=== PATIENT | female | born 1990 | race Caucasian/White ===

== ENCOUNTER 2019-02-05 10:28 | Outpatient (REF) | payer BC, SELFPAY ==
--- NOTE | 2019-02-05 10:30 | PAPFT_PTH ---
PATIENT: Yue Lopez LOC: [facility] U#:[id number] AGE/SX: 28/F ROOM: RE02/05/[address]: Manuela Vo MD : 1990 BED: DIS: 02/05/2019 SPEC #: [id number] RECD: 02/05/19 12:55 STATUS: FERMIN REEdwin #: [id number] BI: 02/05/19 10:[address]: Manuela Vo DEPT: [facility] Cytology RECD BY: Promise Oliver Tissues: 1 - CX/ENDOCX FOR PAP SMEARS Procedures: PAP THIN PREP/UVM Screening Comments: [id number]
== END 2019-02-05 10:48 ==
LOC: LBN 10:28
PROVIDERS: PCP Family Medicine; Visit Provider Family Medicine
DX: Z12.4 Encounter for screening for malignant neoplasm of cervix (principal)
CPT/HCPCS: 88142

== ENCOUNTER 2019-04-11 16:01 | Outpatient (CLI) | payer BC, SELFPAY ==
[2019-04-11 16:51] LABS: Abs Immature Grans 0.03 k/cumm (0.0-0.09); Absolute Basophil Count 0.02 k/cumm (0.0-0.2); Absolute Eosinophil Count 0.04 k/cumm (0.0-0.7); Absolute Lymphocyte Count 1.64 k/cumm (1.2-3.4); Absolute Monocyte Count 0.79 k/cumm (0.11-0.7); Basophils % 0.2; Eosinophils % 0.5; HCT 39.7 % (36.0-46.0); HGB 13.4 g/dL (12.0-15.5); Immature Grans % 0.4; Lymphocytes % 20.4; Mean Corp. HGB Concentration 33.8 g/dL (32.0-36.0); Mean Corpuscular Hemoglobin 31.5 pg (27.0-33.0); Mean Corpuscular Volume 93.4 fL (80-95); Mean Platelet Volume 9.1 fL (8.0-11.0); Monocytes % 9.9; Neutrophils % 68.6; Platelet Count 284 x1000/uL (130-400); RBC 4.25 m/cumm (4.00-5.20); RBC Distribution Width 13.6 % (11.7-14.6); White Blood Cell Count 8.02 k/cumm (4.4-10.8)
[2019-04-11 17:59] LABS: TSH (W/Ref FT4) 1.53 uIU/mL (0.36-3.74)
[2019-04-14 10:33] LABS: Hepatitis B Surface Ag Negative (NEGAT)
[2019-04-14 10:37] LABS: HIV-1/2 Ag & Ab Screen Negative (NEGAT); Hepatitis C Ab w Rflx HCV PCR Negative (NEGAT)
[2019-04-14 11:21] LABS: Rubella IgG Ab (UVM) Positive
[2019-04-14 11:25] LABS: Varicella IgG Antibody Positive
[2019-04-14 11:28] LABS: Syphilis Serology (RPR) Negative (Negative)
== END 2019-04-11 16:21 ==
PROVIDERS: PCP Family Medicine; Visit Provider Advanced Practice Midwife
DX: Z34.91 Encounter for supervision of normal pregnancy, unspecified, first trimester (principal); Z11.59 Encounter for screening for other viral diseases; Z11.4 Encounter for screening for human immunodeficiency virus [HIV]; Z01.84 Encounter for antibody response examination
CPT/HCPCS: 36415; 80055; 86787; 86803; 86850; 86900; 86901; 87340; 87389; 84443; 86592; 86762

== ENCOUNTER 2019-04-11 18:21 | Outpatient (REF) | payer BC, SELFPAY ==
[2019-04-11 17:50] LABS: *BARBITURATES SCREEN URINE Negative (Negative); *BENZODIAZEPINES SCREEN URINE Negative (Negative); Cannabinoids THC Negative (Negative); Cocaine Screen,Urine Negative (Negative); METHADONE URINE SCREEN Negative (Negative); OPIATES URINE SCREEN Negative (Negative); Tricyclic Antidepressants Negative (Negative)
[2019-04-11 19:12] LABS: *AMPHETAMINES SCREEN URINE Negative (Negative)
[2019-04-14 14:07] LABS: Chlamydia Result Negative (Negative); GC Result Negative (Negative)
[2019-04-20 04:07] LABS: Buprenorphine Negative; Norbuprenorphine Negative
== END 2019-04-11 18:41 ==
LOC: LBN 18:21
PROVIDERS: PCP Family Medicine; Visit Provider Advanced Practice Midwife
DX: Z34.91 Encounter for supervision of normal pregnancy, unspecified, first trimester (principal); Z11.3 Encounter for screening for infections with a predominantly sexual mode of transmission
CPT/HCPCS: 80307; 87491; 87591; 87086

== ENCOUNTER 2019-06-04 00:59 | Outpatient (CLI) | payer BC, SELFPAY ==
--- NOTE | 2019-06-04 14:00 | DI.US_ITS ---
EXAM: US OB 2-3 TRIMESTER CLINICAL HISTORY: 18-WEEK ANATOMY SURVEY Z34.90 SUPERVISION NORMAL TECHNIQUE: Ultrasound performed using standard protocol. COMPARISON: No exams were available for comparison FINDINGS: The placenta is anterior. Fetus is in breech position. The biometric measurements correspond to 17 weeks 6 days. No abnormalities are seen. The amniotic fluid amount appears visually normal. IMPRESSION: survey is within normal limits.
== END 2019-06-04 01:19 ==
PROVIDERS: PCP Family Medicine; Visit Provider Advanced Practice Midwife
DX: Z34.92 Encounter for supervision of normal pregnancy, unspecified, second trimester (principal)
CPT/HCPCS: 76805

== ENCOUNTER 2019-08-21 13:11 | Outpatient (CLI) | payer OTHER, SELFPAY ==
[2019-08-21 16:25] LABS: Glucose,1 Hr (Glucola) 114 mg/dL (80-140); HCT 33.1 % (36.0-46.0); HGB 10.8 g/dL (12.0-15.5); Mean Corp. HGB Concentration 32.6 g/dL (32.0-36.0); Mean Corpuscular Hemoglobin 30.5 pg (27.0-33.0); Mean Corpuscular Volume 93.5 fL (80-95); Mean Platelet Volume 8.6 fL (8.0-11.0); Platelet Count 360 x1000/uL (130-400); RBC 3.54 m/cumm (4.00-5.20); RBC Distribution Width 13.8 % (11.7-14.6); White Blood Cell Count 9.15 k/cumm (4.4-10.8)
== END 2019-08-21 13:31 ==
PROVIDERS: PCP Family Medicine; Visit Provider Advanced Practice Midwife
DX: Z34.93 Encounter for supervision of normal pregnancy, unspecified, third trimester (principal)
CPT/HCPCS: 36415; 82950; 85027

== ENCOUNTER 2019-08-27 16:51 | Outpatient (CLI) | payer OTHER, SELFPAY | END 2019-08-27 17:11 | PROVIDERS: PCP Family Medicine; Visit Provider Advanced Practice Midwife | DX: O76 Abnormality in fetal heart rate and rhythm complicating labor and delivery (principal); Z3A.30 30 weeks gestation of pregnancy | CPT/HCPCS: 59025 ==

== ENCOUNTER 2019-10-07 17:28 | Outpatient (REF) | payer OTHER, SELFPAY ==
[2019-10-07 20:59] LABS: *AMPHETAMINES SCREEN URINE Negative (Negative); *BARBITURATES SCREEN URINE Negative (Negative); *BENZODIAZEPINES SCREEN URINE Negative (Negative); Cannabinoids THC Negative (Negative); Cocaine Screen,Urine Negative (Negative); METHADONE URINE SCREEN Negative (Negative); OPIATES URINE SCREEN Negative (Negative)
[2019-10-07 21:03] LABS: Tricyclic Antidepressants Negative (Negative)
[2019-10-13 06:22] LABS: Buprenorphine Negative; Norbuprenorphine Negative
== END 2019-10-07 17:48 ==
LOC: LBN 17:28
PROVIDERS: PCP Family Medicine; Visit Provider Advanced Practice Midwife
DX: Z34.93 Encounter for supervision of normal pregnancy, unspecified, third trimester (principal); Z36.85 Encounter for antenatal screening for Streptococcus B
CPT/HCPCS: 80307; 87081

== ENCOUNTER 2019-10-14 16:11 | Outpatient (CLI) | payer OTHER, SELFPAY | END 2019-10-14 16:41 | disposition home or self-care (01) | LOC: BCD 16:12 | PROVIDERS: PCP Family Medicine; Visit Provider Advanced Practice Midwife | DX: O36.8130 Decreased fetal movements, third trimester, not applicable or unspecified (principal); Z3A.36 36 weeks gestation of pregnancy | CPT/HCPCS: 59025 ==

== ENCOUNTER 2019-10-29 02:00 | Outpatient (CLI) | payer OTHER, SELFPAY ==
--- NOTE | 2019-10-29 07:00 | DI.US_ITS ---
EXAM: US OB MESFIN WEIGHT CLINICAL HISTORY: size <dates,o26.93 TECHNIQUE: Ultrasound performed using standard protocol. COMPARISON: US US OB 2-3 TRIMESTER from 06/04/2019 FINDINGS: Ob ultrasound was performed utilizing 3rd trimester protocol. biometry is consistent with gest ational age of 38 weeks 4 days and an EDC of 11/08/2019. The estimated weight is 3557 grams wh ich is at the 61st percentile for predicted gestational age. Placenta is anterior with no placenta previa. There is visually a normal quantity of amniotic fluid and the MESFIN is 17. Fetus is in cephalic presentation. heart rate 132 BPM. IMPRESSION: DATA REPOSITORY:
== END 2019-10-29 02:20 ==
PROVIDERS: PCP Family Medicine; Visit Provider Advanced Practice Midwife
DX: O26.843 Uterine size-date discrepancy, third trimester (principal); Z3A.38 38 weeks gestation of pregnancy
CPT/HCPCS: 76816

== ENCOUNTER 2019-11-06 15:13 | Inpatient (IN) | payer OTHER, SELFPAY ==
[2019-11-06 16:59] LABS: HCT 36.6 % (36.0-46.0); HGB 12.2 g/dL (12.0-15.5); Mean Corp. HGB Concentration 33.3 g/dL (32.0-36.0); Mean Corpuscular Hemoglobin 29.1 pg (27.0-33.0); Mean Corpuscular Volume 87.4 fL (80-95); Mean Platelet Volume 9.3 fL (8.0-11.0); Platelet Count 447 x1000/uL (130-400); RBC 4.19 m/cumm (4.00-5.20); RBC Distribution Width 14.4 % (11.7-14.6); White Blood Cell Count 15.58 k/cumm (4.4-10.8)
[2019-11-06] MEDS: Acetaminophen 325 MG TAB 650 MG PO (20:24)
[2019-11-06] MEDS: Ibuprofen 600 MG TAB PO (20:25)
[2019-11-06] MEDS: Senna TAB 1 TAB PO (20:25)
[2019-11-06] MEDS: Hamamelis Leaf/Glycerin 100 EACH BOX PR (20:26)
[2019-11-07] MEDS: Acetaminophen 325 MG TAB 650 MG PO (05:10)
[2019-11-07] MEDS: Ibuprofen 600 MG TAB PO (05:11)
[2019-11-07 06:55] LABS: HCT 31.7 % (36.0-46.0); HGB 10.6 g/dL (12.0-15.5); Mean Corp. HGB Concentration 33.4 g/dL (32.0-36.0); Mean Corpuscular Hemoglobin 29.4 pg (27.0-33.0); Mean Corpuscular Volume 88.1 fL (80-95); Mean Platelet Volume 9.4 fL (8.0-11.0); Platelet Count 410 x1000/uL (130-400); RBC Distribution Width 14.6 % (11.7-14.6); White Blood Cell Count 17.55 k/cumm (4.4-10.8)
[2019-11-07 08:41] LABS: COVID-19 RT-PCR UVMMC Result Negative (Negative)
[2019-11-07] MEDS: oxyCODONE 5 mg/Acetaminophen 325 mg TAB 2 TAB PO ×2 (08:55→14:10)
[2019-11-07] MEDS: oxyCODONE 5 mg/Acetaminophen 325 mg TAB 1 TAB PO (19:11)
[2019-11-07] MEDS: Senna TAB 1 TAB PO (19:12)
[2019-11-07] MEDS: Docusate Sodium 100 MG CAP PO (21:18)
[2019-11-08] MEDS: oxyCODONE 5 mg/Acetaminophen 325 mg TAB 1 TAB PO (01:01)
[2019-11-08] MEDS: Ibuprofen 600 MG TAB PO (08:55)
[2019-11-08] MEDS: Senna TAB 1 TAB PO (08:55)
[2019-11-08] MEDS: Docusate Sodium 100 MG CAP PO (08:55)
[2019-11-08] MEDS: Acetaminophen 325 MG TAB 650 MG PO (12:05)
== END 2019-11-08 15:30 | disposition home or self-care (01) | DRG 768 ==
PROVIDERS: Admitting Provider Advanced Practice Midwife; PCP Family Medicine; Visit Provider Advanced Practice Midwife
DX: O76 Abnormality in fetal heart rate and rhythm complicating labor and delivery (principal); Z37.0 Single live birth; O70.3 Fourth degree perineal laceration during delivery; O77.0 Labor and delivery complicated by meconium in amniotic fluid; O69.89X0 Labor and delivery complicated by other cord complications, not applicable or unspecified; Z3A.40 40 weeks gestation of pregnancy; O99.344 Other mental disorders complicating childbirth; F32.9 Major depressive disorder, single episode, unspecified
CPT/HCPCS: 59300; 36415; 85027; 86850; 86900; 86901; U0003; G0378

== ENCOUNTER 2021-02-25 03:26 | Outpatient (CLI) | payer OTHER, SELFPAY ==
[2021-02-25 15:19] LABS: Abs Immature Grans 0.03 10^3/uL (0.0-0.06); Absolute Basophil Count 0.02 10^3/uL (0.0-0.2); Absolute Eosinophil Count 0.04 10^3/uL (0.0-0.7); Absolute Lymphocyte Count 1.43 10^3/uL (1.2-3.4); Absolute Monocyte Count 0.58 10^3/uL (0.1-0.8); Absolute Neutrophil Count 4.31 10^3/uL (1.2-6.7); Basophils % 0.3; Eosinophils % 0.6; HCT 37.9 % (36.0-46.0); HGB 12.7 g/dL (11.2-15.7); Immature Grans % 0.5; Lymphocytes % 22.3; MCH 30.8 pg (27.0-33.0); MCHC 33.5 % (32.0-36.0); MCV 91.8 fL (80-95); MPV 8.7 fL (8.0-11.0); Neutrophils % 67.3; Nucleated RBC 0 %; Platelet Count 259 10^3/uL (130-400); RBC 4.13 10^6/uL (3.93-5.22); RDW 13.6 % (11.7-14.6); RDW-SD 45.7 fL; WBC 6.41 10^3/uL (4.4-10.8)
[2021-02-25 16:27] LABS: TSH (W/Ref FT4) 0.82 uIU/mL (0.36-3.74)
[2021-02-25 17:35] LABS: *AMPHETAMINES SCREEN URINE Negative (Negative); *BARBITURATES SCREEN URINE Negative (Negative); *BENZODIAZEPINES SCREEN URINE Negative (Negative); Cannabinoids THC Negative (Negative); Cocaine Screen,Urine Negative (Negative); METHADONE URINE SCREEN Negative (Negative); OPIATES URINE SCREEN Negative (Negative)
[2021-02-25 17:38] LABS: Tricyclic Antidepressants Negative (Negative)
[2021-02-28 10:05] LABS: Hepatitis B Surface Ag Negative (Negative)
[2021-02-28 10:45] LABS: Hepatitis C Ab w Rflx HCV PCR Negative (Negative)
[2021-02-28 10:56] LABS: HIV-1/2 Ag & Ab Screen Negative (Negative)
[2021-02-28 12:37] LABS: Varicella IgG Antibody Positive (See Note)
[2021-02-28 12:38] LABS: Rubella IgG Ab (UVM) Positive (See Note)
[2021-03-01 14:07] LABS: Syphilis Total Ab w/Reflex Nonreactive (Nonreactive)
[2021-03-03 09:56] LABS: Buprenorphine Negative ng/mL (Cutoff: 5.0)
[2021-03-04 18:03] LABS: Specimen WB Whole Blood
[2021-03-09 00:55] LABS: Result Summary NEGATIVE; Specimen WB Whole Blood
== END 2021-02-25 03:27 | disposition home or self-care (01) ==
LOC: LBO 03:26
PROVIDERS: PCP Family Medicine; Visit Provider Advanced Practice Midwife
DX: Z34.91 Encounter for supervision of normal pregnancy, unspecified, first trimester (principal); Z11.4 Encounter for screening for human immunodeficiency virus [HIV]; Z11.59 Encounter for screening for other viral diseases; Z01.84 Encounter for antibody response examination; Z36.89 Encounter for other specified antenatal screening; F41.8 Other specified anxiety disorders; O99.341 Other mental disorders complicating pregnancy, first trimester
CPT/HCPCS: 36415; 80307; 81329; 86787; 86803; 86850; 86900; 86901; 87340; 87389; 81220; 84443; 85025; 86762; 86780; 87086

== ENCOUNTER 2021-03-25 02:23 | Outpatient (CLI) | payer OTHER, SELFPAY ==
[2021-03-29 13:07] LABS: AFP 52.3 ng/mL; Calculated age at EDD 29 years; Cigarette smoking status non-Smoker; GA used in risk estimate Scan estimate; INHIBIN 105 pg/mL; IVF Pregnancy No; Initial or repeat testing Initial testing; Insulin dependent diabetes No; Maternal Weight 137 lbs; Number of Fetuses 1; Physician Phone Number 802-748-7300; Prev Down(T21)/Trisomy Pregnan No; Prev Pregnancy w/NTD No; RECOMMENDED FOLLOW UP None.; Results Summary Normal risk; hCG, TOTAL 41.8 IU/mL; uE3 0.62 ng/mL; uE3 MoM 0.76 MoM
== END 2021-03-25 02:24 | disposition home or self-care (01) ==
LOC: LBO 02:24
PROVIDERS: Advanced Practice Midwife; PCP Family Medicine; Visit Provider Advanced Practice Midwife
DX: Z34.92 Encounter for supervision of normal pregnancy, unspecified, second trimester (principal); Z3A.16 16 weeks gestation of pregnancy
CPT/HCPCS: 36415; 81511

== ENCOUNTER 2021-03-25 18:39 | Outpatient (REF) | payer OTHER, SELFPAY ==
[2021-03-28 16:09] LABS: Chlamydia Result Negative (Negative); GC Result Negative (Negative)
== END 2021-03-25 18:40 | disposition home or self-care (01) ==
LOC: LBN 18:39
PROVIDERS: PCP Family Medicine; Visit Provider Advanced Practice Midwife
DX: Z34.92 Encounter for supervision of normal pregnancy, unspecified, second trimester (principal); Z3A.16 16 weeks gestation of pregnancy
CPT/HCPCS: 87491; 87591

== ENCOUNTER 2021-06-15 02:37 | Outpatient (CLI) | payer OTHER, SELFPAY ==
[2021-06-15 15:12] LABS: HCT 31.8 % (36.0-46.0); HGB 10.2 g/dL (11.2-15.7); MCHC 32.1 % (32.0-36.0); MCV 93.5 fL (80-95); MPV 8.4 fL (8.0-11.0); Platelet Count 299 10^3/uL (130-400); RDW 12.9 % (11.7-14.6); RDW-SD 44.3 fL; WBC 8.95 10^3/uL (4.4-10.8)
[2021-06-15 15:53] LABS: Glucose,1 Hr (Glucola) 140 mg/dL (80-140)
== END 2021-06-15 02:38 | disposition home or self-care (01) ==
LOC: LBO 02:37
PROVIDERS: PCP Family Medicine; Visit Provider Advanced Practice Midwife
DX: Z34.93 Encounter for supervision of normal pregnancy, unspecified, third trimester (principal)
CPT/HCPCS: 36415; 82950; 85027

== ENCOUNTER 2021-06-23 04:01 | Outpatient (CLI) | payer OTHER, SELFPAY ==
[2021-06-23 09:24] LABS: Glucose 1 Hour 153 mg/dL
[2021-06-23 11:20] LABS: Glucose 3 Hour 104 mg/dL
== END 2021-06-23 04:02 | disposition home or self-care (01) ==
LOC: LBO 04:01
PROVIDERS: PCP Family Medicine; Visit Provider Advanced Practice Midwife
DX: R73.09 Other abnormal glucose (principal)
CPT/HCPCS: 36415; 82951

== ENCOUNTER 2021-08-02 18:25 | Outpatient (REF) | payer OTHER, SELFPAY ==
[2021-08-02 17:59] LABS: COMMENT (LAB VIEW ONLY) 93.79 mg/dL; PROTEIN 34.6 mg/dL; Prot/Crea Ur Ratio 0.36
== END 2021-08-02 18:26 | disposition home or self-care (01) ==
LOC: LBN 18:25
PROVIDERS: PCP Family Medicine; Visit Provider Advanced Practice Midwife
DX: H53.9 Unspecified visual disturbance (principal)
CPT/HCPCS: 82565; 84156

== ENCOUNTER 2021-08-03 11:13 | Outpatient (CLI) | payer OTHER, SELFPAY ==
[2021-08-03 14:21] VITALS: BP 111/69; PULSE 86; TEMP 36.9
[2021-08-03 14:39] VITALS: BP 111/69; PULSE 86
[2021-08-03 14:53] LABS: HCT 32.6 % (36.0-46.0); HGB 10.3 g/dL (11.2-15.7); MCH 29.5 pg (27.0-33.0); MCHC 31.6 % (32.0-36.0); MCV 93.4 fL (80-95); MPV 8.8 fL (8.0-11.0); Platelet Count 250 10^3/uL (130-400); RBC 3.49 10^6/uL (3.93-5.22); RDW 14.6 % (11.7-14.6); WBC 8.19 10^3/uL (4.4-10.8)
[2021-08-03 15:13] LABS: ALT 11 U/L (14-59); AST 14 U/L (15-37); Albumin 2.4 g/dL (3.4-5.0); Alkaline Phosphatase 80 U/L (46-116); Anion Gap 6.7 mmol/L (3-11); BUN 9 mg/dL (7-18); Bilirubin, Total 0.1 mg/dL (0.2-1.0); CO2 25.3 mmol/L (21.0-32.0); CREATININE 0.5 mg/dL (0.55-1.02); Calcium 8.2 mg/dL (8.5-10.1); Chloride 102 mmol/L (98-107); Glucose 121 mg/dL (74-106); LDH 127 U/L (81-234); Potassium 3.4 mmol/L (3.5-5.1); Sodium 134 mmol/L (136-145); Total Protein 6.6 g/dL (6.4-8.2); Uric Acid 2.4 mg/dL (2.6-6.0)
[2021-08-03 15:31] LABS: Bilirubin Negative (Negative); Blood Negative (Negative); Clarity Clear (Clear); Glucose 500 mg/dL (Negative); Ketones Negative (Negative); Leukocyte Esterase Small (Negative); Nitrite Negative (Negative); Specific Gravity 1.025 (1.005-1.025)
[2021-08-03 15:43] LABS: C & S Indicated? No
--- NOTE | 2021-08-03 16:00 | W.OBNST ---
Date of service: 08/03/21 Time of Service: 16:01 NST Evaluation Reason for NST Reasons for Nonstress Test: OTHER, SEE COMMENT Reason for NST Other: Protein creatinine ratio high. Gestational Age Gestational Age in Weeks and Days: 34 Weeks and 2Days Test and Monitor Explained Test/Monitor Explained: Test Explained, Monitor Explained and Patient Verbalized Understanding Vital Signs Blood Pressure: 111/69 Pulse: 86 Temperature: 98.4 F NST Information Date on Monitor: 08/03/21 Time on Monitor: 14:18 Date off Monitor: 08/03/21 Time off Monitor: 15:04 Total Time on Monitor: 46 NST Interventions: PO Hydration NST Evaluation Patient States Movement: Present FHR Baseline: 140 Variability: Moderate 6-25 bpm Accelerations: 15x15 Decelerations: None NST Results: Reactive Note NST Note Note: Anastasiya presented for NST and pre-eclampsia labs as pro/creat ratio obtained in office yesterday was elevated. She admits that recently she has been vomiting and ill often and was likely dehydrated yesterday. She has been tolerating liquids well since then. She reports she has been having some vision changes that occur for a short period of time a few times a week. Reports them as dark spots in vision or changes in peripheral vision. No LOWERY associated. 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 NST and serum labs are normal today. Review with Dr. Elder who agrees that patient can be discharged to home today but that we will continue to observe for changes in condition. She will do NST's next week on Sunday and and has office appointment on Sunday for further evaluation over the coming week. She is aware of pre-eclampsia warning signs to call for. She will also make appointment for eye exam with PCP and or eye MD. Patient is aware that if BP's elevated or labs worsen she may need to be delivered prior to her due date. WESLY NST Reviewed and Verified by: Michelle Graff
[2021-08-03 16:05] VITALS: BP 111/69; PULSE 86; TEMP 36.9
[2021-08-03 16:39] LABS: COMMENT (LAB VIEW ONLY) 108.59 mg/dL; Prot/Crea Ur Ratio 0.38
== END 2021-08-03 15:45 | disposition home or self-care (01) ==
LOC: BCD 11:14 → OBS 14:20
PROVIDERS: PCP Family Medicine; Visit Provider Advanced Practice Midwife
DX: O12.13 Gestational proteinuria, third trimester (principal); Z3A.34 34 weeks gestation of pregnancy
CPT/HCPCS: 59025; 80053; 85027; 81003; 81015; 82565; 83615; 84156; 84550

== ENCOUNTER 2021-08-08 02:41 | Outpatient (CLI) | payer OTHER, SELFPAY ==
[2021-08-08 15:01] LABS: HCT 34.2 % (36.0-46.0); MCH 29.1 pg (27.0-33.0); MCHC 32.2 % (32.0-36.0); MCV 90.5 fL (80-95); MPV 8.6 fL (8.0-11.0); Platelet Count 275 10^3/uL (130-400); RBC 3.78 10^6/uL (3.93-5.22); RDW 14.6 % (11.7-14.6); RDW-SD 48.4 fL
[2021-08-08 15:56] LABS: ALT 14 U/L (14-59); AST 13 U/L (15-37); Albumin 2.6 g/dL (3.4-5.0); Alkaline Phosphatase 89 U/L (46-116); BUN 9 mg/dL (7-18); Bilirubin, Total 0.2 mg/dL (0.2-1.0); CREATININE 0.6 mg/dL (0.55-1.02); Calcium 8.7 mg/dL (8.5-10.1); Chloride 102 mmol/L (98-107); Glucose 113 mg/dL (74-106); LDH 141 U/L (81-234); Potassium 3.7 mmol/L (3.5-5.1); Sodium 136 mmol/L (136-145); Total Protein 6.6 g/dL (6.4-8.2); Uric Acid 2.6 mg/dL (2.6-6.0)
== END 2021-08-08 02:42 | disposition home or self-care (01) ==
LOC: LBO 02:42
PROVIDERS: PCP Family Medicine; Visit Provider Advanced Practice Midwife
DX: O12.13 Gestational proteinuria, third trimester (principal)
CPT/HCPCS: 36415; 80053; 85027; 83615; 84550

== ENCOUNTER 2021-08-08 09:52 | Outpatient (REF) | payer OTHER, SELFPAY ==
[2021-08-08 13:05] LABS: Creatinine,Urine 125.06 mg/dL; PROTEIN 46.7 mg/dL (0.0-11.9)
[2021-08-08 13:08] LABS: Creatinine,24hr Ur 0.88 g/24hr (0.60-1.80); TOTAL PROTEIN,URINE TIMED 326.9 mg/24hr (0.0-149.1); Total Volume 700 ml
== END 2021-08-08 09:53 | disposition home or self-care (01) ==
LOC: LBN 09:52
PROVIDERS: PCP Family Medicine; Visit Provider Advanced Practice Midwife
DX: O12.13 Gestational proteinuria, third trimester (principal)
CPT/HCPCS: 81050; 82570; 84155

== ENCOUNTER 2021-08-08 15:27 | Outpatient (CLI) | payer OTHER, SELFPAY ==
[2021-08-08 15:33] VITALS: BP 109/68; PULSE 81; TEMP 36.7
[2021-08-08 16:01] VITALS: BP 109/68; PULSE 81
[2021-08-08 16:31] VITALS: BP 109/68; PULSE 81; TEMP 36.7
--- NOTE | 2021-08-08 16:31 | W.OBNST ---
Date of service: 08/08/21 Time of Service: 16:20 NST Evaluation Reason for NST Reasons for Nonstress Test: OTHER, SEE COMMENT Reason for NST Other: Proteinuria Gestational Age Gestational Age in Weeks and Days: 35 Weeks and 0Days Test and Monitor Explained Test/Monitor Explained: Test Explained, Monitor Explained and Patient Verbalized Understanding Vital Signs Blood Pressure: 109/68 Pulse: 81 Temperature: 98.1 F NST Information Date on Monitor: 08/08/21 Time on Monitor: 15: Date off Monitor: 08/08/21 Time off Monitor: 16: Total Time on Monitor: 60 NST Interventions: PO Hydration Contraction Frequency: none NST Evaluation Patient States Movement: Present FHR Baseline: 135 Variability: Moderate 6-25 bpm Accelerations: 15x15 Decelerations: None NST Results: Reactive Note NST Note Note: NST is reactive and reassuring. 24 hour urine + protein, 326.9 but only 700 volume. Discussed increasing hydration. CMP is stable and Platelets are normal. We discussed potential of induction prior to due date but that right now we will continue with twice weekly NST's and weekly serum lab values per consult with Dr. Benito today. Has US early august for growth. Has office appointment on Sunday and NST on this week. WESLY NST Reviewed and Verified by: Michelle Graff
== END 2021-08-08 16:30 | disposition home or self-care (01) ==
LOC: BCD 15:27 → OBS 15:31
PROVIDERS: PCP Family Medicine; Visit Provider Advanced Practice Midwife
DX: O12.13 Gestational proteinuria, third trimester (principal); Z3A.35 35 weeks gestation of pregnancy
CPT/HCPCS: 59025

== ENCOUNTER 2021-08-11 06:33 | Outpatient (CLI) | payer OTHER, SELFPAY ==
[2021-08-11 15:55] VITALS: BP 113/68; PULSE 86; TEMP 36.6
--- NOTE | 2021-08-11 18:53 | W.OBNST ---
Date of service: 08/11/21 Time of Service: 18:54 NST Evaluation Reason for NST Reasons for Nonstress Test: OTHER, SEE COMMENT Reason for NST Other: proteinuria Gestational Age Gestational Age in Weeks and Days: 35 Weeks and 0Days Test and Monitor Explained Test/Monitor Explained: Test Explained, Monitor Explained and Patient Verbalized Understanding Vital Signs Blood Pressure: 113/68 Pulse: 86 NST Information Date on Monitor: 08/11/21 Time on Monitor: 15:35 NST Interventions: PO Hydration NST Evaluation Patient States Movement: Present Accelerations: Prolonged Note NST Note Note: NST is reactive and reassuring. BP stable. No complaints. Return as scheduled for NST and has US August 23 for growth. We will reassess at that time for further NST's after review with team. Patient prefers to avoid intervention if possible. WESLY NST Reviewed and Verified by: Michelle Graff
[2021-08-11 18:56] VITALS: BP 113/68; PULSE 86
== END 2021-08-11 16:55 | disposition home or self-care (01) ==
LOC: BCD 06:38 → OBS 15:49
PROVIDERS: PCP Family Medicine; Visit Provider Advanced Practice Midwife
DX: O12.13 Gestational proteinuria, third trimester (principal); Z3A.35 35 weeks gestation of pregnancy
CPT/HCPCS: 59025

== ENCOUNTER 2021-08-15 08:50 | Outpatient (CLI) | payer OTHER, SELFPAY ==
[2021-08-15 16:05] VITALS: BP 106/66; PULSE 75; TEMP 36.7
[2021-08-15 16:11] VITALS: BP 106/66; PULSE 75
--- NOTE | 2021-08-15 16:54 | PDOC.NST_ITS ---
Date of service: 08/15/21 Time of Service: 16:54 NST Evaluation Reason for NST Reasons for Nonstress Test: OTHER, SEE COMMENT Reason for NST Other: protenuria Gestational Age Gestational Age in Weeks and Days: 36 Weeks and 0Days Test and Monitor Explained Test/Monitor Explained: Test Explained, Monitor Explained and Patient Verbalized Understanding Vital Signs Blood Pressure: 106/66 Pulse: 75 Temperature: 98.1 F Urine Results Urine Protein: Positive Urine Ketones: Negative Urine Glucose: Negative Urine Blood: Negative NST Information Date on Monitor: 08/15/21 Time on Monitor: 16:13 Date off Monitor: 08/15/21 Time off Monitor: 16:35 Total Time on Monitor: 22 NST Evaluation Patient States Movement: Present FHR Baseline: 125 Variability: Moderate 6-25 bpm Accelerations: 15x15 Decelerations: None NST Results: Reactive Note NST Note Note: NST scheduled with visit today due to proteinuria. B.P. WNL. urine dip 1+ prote in. US scheduled in one week, with visit. Signs of preeclampsia reviewed. NST Reviewed and Verified by: Michelle Cruz
[2021-08-15 17:00] VITALS: BP 106/66; PULSE 75; TEMP 36.7
== END 2021-08-15 16:45 | disposition home or self-care (01) ==
LOC: BCD 09:01 → OBS 16:03
PROVIDERS: PCP Family Medicine; Visit Provider Advanced Practice Midwife
DX: O12.13 Gestational proteinuria, third trimester (principal); Z3A.36 36 weeks gestation of pregnancy
CPT/HCPCS: 59025

== ENCOUNTER 2021-08-15 16:49 | Outpatient (REF) | payer OTHER, SELFPAY ==
[2021-08-15 21:50] LABS: *AMPHETAMINES SCREEN URINE Negative (Negative); *BARBITURATES SCREEN URINE Negative (Negative); *BENZODIAZEPINES SCREEN URINE Negative (Negative); Cannabinoids THC Negative (Negative); Cocaine Screen,Urine Negative (Negative); METHADONE URINE SCREEN Negative (Negative); OPIATES URINE SCREEN Negative (Negative)
[2021-08-15 21:51] LABS: Tricyclic Antidepressants Negative (Negative)
[2021-08-20 11:41] LABS: Buprenorphine Negative ng/mL (Cutoff: 5.0); Norbuprenorphine Negative ng/mL (Cutoff: 2.5)
== END 2021-08-15 16:50 | disposition home or self-care (01) ==
LOC: LBN 16:49
PROVIDERS: PCP Family Medicine; Visit Provider Advanced Practice Midwife
DX: Z34.93 Encounter for supervision of normal pregnancy, unspecified, third trimester (principal)
CPT/HCPCS: 80307; 87081

== ENCOUNTER 2021-08-23 01:05 | Outpatient (CLI) | payer OTHER, SELFPAY ==
--- NOTE | 2021-08-23 06:45 | DI.US_ITS ---
Exam(s) US OB MESFIN WEIGHT EXAM: US OB MESFIN WEIGHT CLINICAL HISTORY: size less than dates,fundal ht low for dates,O26.849. TECHNIQUE: Transabdominal obstetrical ultrasound was performed. COMPARISON: US US OB 2-3 TRIMESTER from 04/12/2021 FINDINGS: There is a single viable intrauterine gestation with cardiac activity identified-139 bpm The fetus is presently in cephalic position . Amniotic fluid: There is a normal amount of amniotic fluid with an MESFIN of 14.8cm. Placental location: The placenta is anterior grade 1,with no evidence of placenta previa. Dating parameters place this at approximately 36 weeks and 6 days gestational age, implying PATTI of September 14, 2021. BPD measures 36 weeks and 3 days HC measures 36 weeks and 6 days AC measures 38 weeks and 1 day FL measures 36 weeks and 0 days Estimated weight is 3159 gm-6 pounds, 15 ounces Fetus is at the 60th percentile on the Hadlock scale. IMPRESSION:: Viable 3rd trimester gestation, as described above. DATA REPOSITORY:
== END 2021-08-23 01:25 ==
PROVIDERS: PCP Family Medicine; Visit Provider Advanced Practice Midwife
DX: O26.843 Uterine size-date discrepancy, third trimester (principal); Z3A.36 36 weeks gestation of pregnancy
CPT/HCPCS: 76816

== ENCOUNTER 2021-09-03 06:55 | Inpatient (IN) | payer OTHER, SELFPAY ==
[2021-09-03] VITALS (11 sets, daily range): BP systolic 113–135; BP diastolic 58–83; PULSE 94–115; RESP 16–18; TEMP 36.3–37.1; O2SAT 98–100
[2021-09-03 08:17] LABS: HCT 34.1 % (36.0-46.0); HGB 11.2 g/dL (11.2-15.7); MCH 28.8 pg (27.0-33.0); MCHC 32.8 % (32.0-36.0); MCV 87.7 fL (80-95); MPV 8.9 fL (8.0-11.0); Platelet Count 298 10^3/uL (130-400); RBC 3.89 10^6/uL (3.93-5.22); RDW 14.6 % (11.7-14.6); RDW-SD 46.8 fL; WBC 12.99 10^3/uL (4.4-10.8)
[2021-09-03 08:19] LABS: Source Nasal/Nares
[2021-09-03] MEDS: Oxytocin 10 UNITS/ML VIAL IM (08:50)
--- NOTE | 2021-09-03 09:05 | W.PM.OBHPL1 ---
Date of service: 09/03/21 Time of Service: 09:08 Assessment and Plan Assessment and plan (1) Spontaneous onset of labor: Status: Acute Assessment and plan: Admit to Center. Comfort measures. Covid- 19 test. Anticipate imminent . OB-HPI Labor/Delivery History of Present Illness Reason for Visit: Term Rule out Chief Complaint: Uterine Contractions. PATTI Calculator Estimated Delivery Date Method WG Current Estimate 09/12/21 Ultrasound #1 Other Estimates 09/08/21 LMP (Uncertain) Delivery Date-Baby A 09/03/21 38w 5d Comments: Yue reports strong, regular contractions since 429. intact membranes. yue is coping well with contractions History of Present Expected Delivery Route/Plan - CNM FOB/ - Harmeet Cheng (2nd child together) BB yes to circ Would like to use the tub GBS negative Specific Issues/Plan 1. Pt declines COVID vaccine, FOB is fully vaccinated 2. Declines [place] screening, SMA & CF carrier screen negative, Quad screen = low risk x3 3. Nursing 16 mo toddler, plans to tandem nurse. Baby weaned 04/2021 4. Sustained 4th degree lac at last , painful recovery 5. OCD/anxiety, sertraline 100 mg PO qd, declines S referral 6. Anemia at 27 wks: hgb 10.2, start iron supplement, Taking ferrous sulfate. 7. 1 hr [id number]=[id number] at 27 wks: 3 hr GTT normal X 4 levels 79/153/145/104 8. Size less than dates - US scheduled for growth and MESFIN on 08/23/21 9. Visual disturbances and epigastric pain - protein/creatinine ratio and 24 hour urine + proteinuria 9a. serum labs are normal. Consult w/Dr. Benito 08/08: twice weekly NST's, serum CBC & CMP.(done & nml 08/08/21) no further urine samples required. 9b. delivery will be based on labs and symptoms. 37 wk scan for growth in the 60th percentile, MESFIN 14 10. PUPPPS noted @ 35 wks: OTC topical treatments recommended- improved 08/23/21 PFSH All Active Problems (Updated 09/03/21 @ 09:11 by Michelle Cruz CNM) Spontaneous onset of labor (Acute) Proteinuria affecting in third trimester (Acute) Visual disturbance (Acute) Fundal height low for dates (Acute) Elevated glucose level (Acute) (Acute) Positive test (Acute) Obsessive compulsive disorder (Acute) Chilblains, sequela (Acute 09/21/16) feet/ 2015 09-2016: [facility] [place] / [place]. to Norvasc and Plaquenil/ (MARIO 1:160, +Ro) Anxiety (Acute) obssessive-compulsive disorder/panic disorder Medical History (Updated 09/03/21 @ 09:11 by Michelle Cruz CNM) Annual visit for general adult medical examination without abnormal findings Encounter for Nexplanon removal Low blood pressure Positive test related conditions, unspecified, third trimester Presence of subdermal contraceptive device Underweight Family History Mother Asthma Father Essential hypertension Depression Hypertension Sister Depression Maternal Grandfather , 80's Essential hypertension Heart disease Hyperlipidemia Paternal Grandfather , 80's Essential hypertension Heart disease Prostate cancer Colon cancer Liver cancer Maternal Grandmother Hyperlipidemia Paternal Grandmother Essential hypertension Heart disease Stroke Alcohol abuse Depression Social History (Updated 02/18/21 @ 13:08 by Iris Koehler) Smoking/Tobacco Use Status: Never Second Hand Exposure: No Smoking risk assessment performed?: Yes Alcohol Intake: never Drug use: Never Substance use type: does not use Caregiver/Support person: No Household members: spouse and children Housing: house Communication Needs: None Do you need help understanding health information?: Rarely Pets and animals: Yes Pets and animals: cat(s) Sexually active: Yes Do you think of yourself as: straight/heterosexual Current gender identity: female What is your relationship status?: How often do you talk on the phone with friends or family?: three or more times per week How often do you get together with friends or relatives?: once per week How often do you attend shinto or tenriism services?: 4 or more times per year Do you belong to any clubs or organized social groups?: no Panel score (0-1 are the most socially isolated patients): 3 Christie/Shinto: None Special christie needs: No Seatbelt use: always Helmet use: Yes Helmet use: always Drive intox or ride w/intox tow car driver: No History History 2 Para 1 Hx # Term Pregnancies 1 Multiple births 0 Hx # Pregnancies 0 Ectopic pregnancies 0 AB induced 0 Hx Number of Living Children 1 AB spontaneous 0 Past Pregnancies Del. Date GA/Weeks # Outcome Route Wgt Sex Labor Lgth Anesthesia Location Prov Complic 11/06/19 40 No Successful vaginal 6 lb 14 oz Female 7 hr labor Nancy Pinto Delivery Date: 11/06/19 Last Updated by: Anusha Dickson Unmedicated labor, deep decels, Dr. Pinto came in, midline episiotomy, tight nuchal cord. 4th degree laceration. [employer] Meds Allergies and Home Medications Allergies Allergy/AdvReac Type Severity Reaction Status Date / Time latex Allergy Unknown SKIN RASH Verified 09/01/21 14:28 Home Medications Medication Instructions Recorded Confirmed Type vitamins no.144-folic 400 mcg PO DAILY tab 03/05/19 09/03/21 History acid 400 mcg chewable tablet sertraline 100 mg tablet 100 mg PO DAILY #90 tab 10/14/20 09/03/21 Rx ferrous sulfate 325 mg (65 mg 325 mg PO DAILY #90 tab 06/15/21 09/03/21 Rx iron) tablet omeprazole 20 mg capsule,delayed 20 mg PO BID #60 cap 06/15/21 09/03/21 Rx release pantoprazole 40 mg tablet,delayed 40 mg PO DAILY #30 tab 08/02/21 09/03/21 Rx release (Protonix) Exam Physical Exam Vital signs: Temp Pulse Resp BP 97.4 F L 109 H 18 125/74 09/03/21 07:23 09/03/21 08:55 09/03/21 07:23 09/03/21 08:55 Detailed Labor and Delivery Exam Dilation: 9 Effacement (%): 100 station: -1 Cervix position: anterior Consistency: soft Quintana Score: Cervical Points Exam 0 1 2 3 Dilation Closed 1-2cm 3-4 cm 5-6cm Effacement 0-30% 40-50% 60-70% 80% Consistency Firm Medium Soft Station -3 -2 -1,0 +1,+2 Position Posterior Mid Anterior Fetus A Heart Rate Baseline: 140 Monitor Accelerations: 15 X 15 Monitor Decelerations: None Variability: Moderate (6-25 BPM) Presentation: Vertex Categories: Category I Date of Membrane Rupture: 09/03/21 Time of Membrane Rupture: 08:23 Respiratory Exam Respiratory Exam: Normal Cardiovascular Exam Cardiovascular Exam: Normal Abdominal Exam Abdominal Exam: Normal Exam Exam: Normal Results Results Group Beta Strep: Negative Blood Type: A+ Rubella Status: Immune Varicella Immunity: Immune Abnormal Lab Findings: Abnormal Labs 09/03/21 08:05 WBC 12.99 H RBC 3.89 L Hct 34.1 L Risk Assessment Risk for Shoulder Dystocia Historical/Initial OB: NEGATIVE FOR: Pelvic Abnormality, Pre- BMI>30, Previous Shoulder Dystocia or Previous Macrosomia 40 Weeks: NEGATIVE FOR: EFW> 4500 gms, Maternal Weight Gain >40lb or Post Dates Increased Risk?: No Risk for Pre-Eclampsia Daily Dose ASA Indicated: No Date Initiated/Initials: not indicated. JK Yes, if one or more: NEGATIVE FOR: Hx Pre-E/Gest HTN, Chronic HTN, Multiple Gestation, Pre-gestational DM, Renal Disease, Systemic Lupus or APA Syndrome Yes, if 2 or more: POSITIVE FOR: Mother/Sister w/ Pre-E; NEGATIVE FOR: Nulliparity, Age>= 35 yrs, >10yr btwn pregnancies, BMI>30, ethinicty or Previous IUGR Risk for Post- Hemorrhage Initial: NEGATIVE FOR: Multiple Gestation, Previous PPH, Known Clotting Deficiency, Grand Multiparity or Anticoagulation At Risk?: No Risks Reviewed Risks Reviewed Upon Admission: Yes
[2021-09-03 09:06] LABS: COVID-19 PCR Negative (Negative)
--- NOTE | 2021-09-03 09:12 | OBVDS_ITS ---
Date of service: 09/03/21 Time of Service: 09:13 OB Labor/ Delivery Information Baby A Delivery Delivery Method: Spontaneaous Presentation: Vertex Cephalic Position: Vertex Vertex Position: Right Occipital Anterior Amniotic Fluid: Clear Estimated Blood Loss: 200 Delivery Outcome: Liveborn Infant Complications: none Transferred: Remains with Mother Providers Nurse Accounts Specialist: Michelle Cruz Nurse: Cassia Quiñonez Nurse: Maureen Fox Labor/Delivery Information Number of Babies in Womb: 1 Steroids Given: None Reason Steroids Not Administered: N/A Group Beta Strep: Negative Antibiotics Administered: No Rubella Status: Immune Blood Type: A+ Varicella Immunity: Immune Shoulder Dystocia: No Note: FHTs 140 during first stage of labor. FHTs 140 in second stage. Progressed to full dilation and began pushing. Second stage huddle was done. Spontaneous delivery of male infant delivered in ANN position. Baby was placed on mother's abdomen and dried and stimulated. Spontaneous cry. Cord was clamped and cut by the baby's father. The placenta delivered spontaneously and appears to by intact with a three vessel cord. Pitocin 10 units IM was administered after delivery of the placenta. The perineum was inspected and there is a small perineal abrasion which was not bleeding and was not repaired. It is noted to be bilobed with a marginal insertion. Yue wishes to take her placenta home. The baby did breastfeed. After delivery, Mother and baby and father of the baby were stable and bonding well in the delivery room and there were no complications. Stages of Labor Onset of Labor Date: 09/03/21 Onset of Labor Time: 04:00 Complete Dilatation Date: 09/03/21 Complete Dilatation Time: 08:36 Labor - Stage 1 Duration: 0 minutes ROM Baby A: 09/03/21 ROM Baby A: 08:23 ROM Total Time- Baby A: [id number] Delivery Date-Baby A: 09/03/21 Delivery Time-Baby A: 08:40 Labor Stage 2 Duration: 4 minutes Placenta Delivery Date-Baby A: 09/03/21 Total Length of Labor-Baby A: 4 hours and 40 minutes Placenta Status: Delivered Baby A Gender: Male Gestational Status: Early Term (37-38.6 wks) Gestational Age in Weeks/Days: 38 Weeks and 5 Days Score-1 Minute Interval(Baby A) Heart Rate-1 minute: 100 BPM or Greater Respiratory Effort- 1 minute: Spontaneous/Strong Cry Muscle Tone-1 minute: Active Movement Reflex Response-1 minute: Prompt Response Color-1 minute: Pallor or Cyanosis Total Score-1 minute: 8 Score-5 Minute Interval(Baby A) Heart Rate- 5 minute: 100 BPM or Greater Respiratory Effort-5 minute: Spontaneous/Strong Cry Muscle Tone-5 minute: Active Movement Reflex Response-5 minute: Prompt Response Color-5 minute: Bluish Hands or Feet Total Score- 5 minute: 9
[2021-09-03] MEDS: Acetaminophen 325 MG TAB 650 MG PO ×3 (09:41→18:35)
[2021-09-03] MEDS: Dibucaine 1% 28 GM TUBE TP (09:42)
[2021-09-03] MEDS: Hamamelis Leaf/Glycerin 100 EACH BOX PR (09:43)
[2021-09-04] MEDS: Acetaminophen 325 MG TAB 650 MG PO ×2 (06:14→10:43)
[2021-09-04] MEDS: Sertraline 50 MG TAB 100 MG PO (07:40)
[2021-09-04 07:48] VITALS: BP 115/75; PULSE 98; RESP 16; TEMP 36.3; O2SAT 96
--- NOTE | 2021-09-04 12:14 | W.PM.OBDISCH ---
DS: Diagnosis Discharge Diagnosis (1) Term of male : Status: Acute Asessment and Plan: Caring for baby independently. Pain is managed well with oral analgesics. Voiding without difficulty. well. A - stable mother and baby , Post day 1 P - Discharge to home today. Routine post instructions. [facility] Discharge Plan Discharge Details Reason For Visit: Term Rule out Admit Date/Time: 09/03/21 06:59 Admit Provider: Michelle Cruz Attending Provider: Michelle Cruz Primary Care Provider: Pamela Esquivel Home Meds and New Rx's Prescriptions: Continued sertraline 100 mg tablet 100 mg PO DAILY Qty: 90 4RF Discontinued omeprazole 20 mg capsule,delayed release(DR/EC) 20 mg PO BID Qty: 60 0RF pantoprazole [Protonix] 40 mg tablet,delayed release (DR/EC) 40 mg PO DAILY Qty: 30 6RF ferrous sulfate 325 mg (65 mg iron) tablet 325 mg PO DAILY Qty: 90 3RF Rx Instructions: take with vitamin C No Action no.144-folic acid 400 mcg tablet,chewable 400 mcg PO DAILY 0RF Discharge Instructions Stand Alone Forms: BC Instructions, BC Post Vaginal Deliver Activity:: Activity as Tolerated Activity:: Activity as Tolerated Diet:: As Tolerated OB:DS Summary Summary Vaginal Delivery Method: Spontaneaous Episiotomy Description: None Laceration Description: Perineal Laceration Extension: First Degree Contraception Discussed Contraception Discussed: Yes Contraceptive Plan: Levonorgestrel Implant, Gender-Baby A: Male weight: 7 lb 8.461 oz Status at Discharge Functional status at discharge: independent ambulation Overall status at discharge: patient is back to baseline Mental Status: mental status grossly normal Speech and Movement: speech and movement normal Mood: congruent mood Affect: normal affect Exam Physical Exam Vital signs: Temp Pulse Resp BP Pulse Ox 97.3 F L 98 H 16 115/75 96 09/04/21 07:48 09/04/21 07:48 09/04/21 07:48 09/04/21 07:48 09/04/21 07:48 Respiratory Exam Respiratory Exam: Normal Cardiovascular Exam Cardiovascular Exam: Normal Fundal Exam Fundus: Below Umbilicus Extremities Exam Extremity Exam: Normal Psychiatric Exam Psychiatric Exam: Normal PFSH All Active Problems (Updated 09/04/21 @ 12:16 by Michelle Cruz CNM) Term of male (Acute) Spontaneous onset of labor (Acute) Proteinuria affecting in third trimester (Acute) Visual disturbance (Acute) Fundal height low for dates (Acute) Elevated glucose level (Acute) (Acute) Positive test (Acute) Obsessive compulsive disorder (Acute) Chilblains, sequela (Acute 09/21/16) feet/ 2015 09-2016: [facility] [place] / intol. to Norvasc and Plaquenil/ (MARIO 1:160, +Ro) Anxiety (Acute) obssessive-compulsive disorder/panic disorder Medical History (Updated 09/04/21 @ 12:16 by Michelle Cruz CNM) Annual visit for general adult medical examination without abnormal findings Encounter for Nexplanon removal Low blood pressure Positive test related conditions, unspecified, third trimester Presence of subdermal contraceptive device Underweight Family History Mother Asthma Father Essential hypertension Depression Hypertension Sister Depression Maternal Grandfather , 80's Essential hypertension Heart disease Hyperlipidemia Paternal Grandfather , 80's Essential hypertension Heart disease Prostate cancer Colon cancer Liver cancer Maternal Grandmother Hyperlipidemia Paternal Grandmother Essential hypertension Heart disease Stroke Alcohol abuse Depression Social History (Updated 02/18/21 @ 13:08 by Iris Koehler) Smoking/Tobacco Use Status: Never Second Hand Exposure: No Smoking risk assessment performed?: Yes Alcohol Intake: never Drug use: Never Substance use type: does not use Caregiver/Support person: No Household members: spouse and children Housing: house Communication Needs: None Do you need help understanding health information?: Rarely Pets and animals: Yes Pets and animals: cat(s) Sexually active: Yes Do you think of yourself as: straight/heterosexual Current gender identity: female What is your relationship status?: How often do you talk on the phone with friends or family?: three or more times per week How often do you get together with friends or relatives?: once per week How often do you attend worship or islam services?: 4 or more times per year Do you belong to any clubs or organized social groups?: no Panel score (0-1 are the most socially isolated patients): 3 Christie/Restorationism: None Special christie needs: No Seatbelt use: always Helmet use: Yes Helmet use: always Drive intox or ride w/intox funeral limousine driver: No History History 2 Para 1 Hx # Term Pregnancies 1 Multiple births 0 Hx # Pregnancies 0 Ectopic pregnancies 0 AB induced 0 Hx Number of Living Children 1 AB spontaneous 0 Past Pregnancies Del. Date GA/Weeks # Outcome Route Wgt Sex Labor Lgth Anesthesia Location Prov [facility] 11/06/19 40 No Successful vaginal 6 lb 14 oz Female 7 hr labor Nancy Pinto Delivery Date: 11/06/19 Last Updated by: Anusha Dickson Unmedicated labor, deep decels, Dr. Pinto came in, midline episiotomy, tight nuchal cord. 4th degree laceration. Adriane Gregory DS: Data Vitals/I&O Vitals and I&O: Vital Signs Temperature 97.3 F L 09/04/21 07:48 Pulse 98 H 09/04/21 07:48 Pulse Rhythm Regular 09/04/21 07:48 Respiratory Rate 16 09/04/21 07:48 Blood Pressure 115/75 09/04/21 07:48 Blood Pressure Mean 88 09/04/21 07:48 Pulse Oximetry 96 09/04/21 07:48 Pain Level 2 09/04/21 06:14
== END 2021-09-04 12:30 | disposition home or self-care (01) | DRG 807 ==
PROVIDERS: Admitting Provider Advanced Practice Midwife; PCP Family Medicine; Visit Provider Advanced Practice Midwife
DX: O99.02 Anemia complicating childbirth (principal); Z37.0 Single live birth; D64.9 Anemia, unspecified; O99.344 Other mental disorders complicating childbirth; O36.5930 Maternal care for other known or suspected poor fetal growth, third trimester, not applicable or unspecified; O12.14 Gestational proteinuria, complicating childbirth; O43.193 Other malformation of placenta, third trimester; O70.0 First degree perineal laceration during delivery; Z3A.38 38 weeks gestation of pregnancy; F42.9 Obsessive-compulsive disorder, unspecified; F41.0 Panic disorder [episodic paroxysmal anxiety]; H53.9 Unspecified visual disturbance
CPT/HCPCS: 85027; 86850; 86900; 86901; 87635; J2590

== ENCOUNTER 2022-05-08 16:39 | Outpatient (REF) | payer OTHER, SELFPAY ==
--- NOTE | 2022-05-08 16:00 | PAPFT_PTH ---
PATIENT: Yue Lopez LOC: [facility] U#:[id number] AGE/SX: 31/F ROOM: RE05/08/[address]: Michelle Cruz : 1990 BED: DIS: 05/08/2022 SPEC #: [id number] RECD: 05/08/22 18:05 STATUS: FERMIN REQ #: [id number] BI: 05/08/22 16:[address]: Michelle Cruz DEPT: [facility] Cytology RECD BY: Promise Oliver ENTERED: 05/08/22 18:05 SP TYPE: PAPFT MONTSE DR: Pamela Esquivel Tissues: 1 - CX/ENDOCX FOR PAP SMEARS Procedures: PAP THIN PREP/[facility] Screening HPV DNA PROBE Comments: [id number]
== END 2022-05-08 16:40 | disposition home or self-care (01) ==
LOC: LBN 16:39
PROVIDERS: PCP Family Medicine; Visit Provider Advanced Practice Midwife
DX: Z12.4 Encounter for screening for malignant neoplasm of cervix (principal); Z11.51 Encounter for screening for human papillomavirus (HPV)
CPT/HCPCS: 88142; 87624